=== PATIENT | male | born 1995 | race Caucasian/White ===

== ENCOUNTER → 2019-11-08 | Emergency (ER) | payer OTHER | END | disposition left against medical advice (07) | LOC: M ED | DX: Z11.59 Encounter for screening for other viral diseases (principal); Z53.9 Procedure and treatment not carried out, unspecified reason; Z20.828 Contact with and (suspected) exposure to other viral communicable diseases; Z53.21 Procedure and treatment not carried out due to patient leaving prior to being seen by health care provider ==

== ENCOUNTER 2020-06-03 19:17 | Emergency (ER) | payer OTHER ==
[~2020-06-03] VITALS: Ht 188 cm; Wt 107.2 kg
--- NOTE | 2020-06-03 20:19 | REPVR ---
PROCEDURE INFORMATION: Exam: XR Right Wrist Exam date and time: 06/03/2020 8:06 PM Age: 25 years old Clinical indication: Other: Trauma TECHNIQUE: Imaging protocol: XR Right wrist. Views: 3 or more views. COMPARISON: No relevant prior studies available. FINDINGS: Bones/joints: There is an acute comminuted fracture of the distal radius with extension into the distal radius articular surface. The dominant fracture fragment is dorso-radially displaced approximately 10 mm and the fracture is mildly impacted and dorsally angled. No other fracture is identified. Bone density is normal. Soft tissues: There is swelling of the wrist soft tissues. IMPRESSION: Acute comminuted fracture of the distal radius with intra-articular extension. The fracture is displaced, impacted and dorsally angled. Electronically signed by: Leonel Dupree On 06/03/2020 20:19:42 PM
--- NOTE | 2020-06-03 20:21 | REPVR ---
PROCEDURE INFORMATION: Exam: XR Right Forearm Exam date and time: 06/03/2020 8:06 PM Age: 25 years old Clinical indication: Other: Trauma TECHNIQUE: Imaging protocol: XR Right forearm. Views: 2 views. COMPARISON: No relevant prior studies available. FINDINGS: Bones/joints: There is an acute displaced and impacted fracture of the distal radius with dorsal angulation of the distal radius articular surface. The fracture extends into the distal radius articular surface and is better characterized on the dedicated wrist radiograph. The elbow joint is intact. Bone density is normal. Soft tissues: There is swelling of the wrist soft tissues. IMPRESSION: Acute fracture of the distal radius. Electronically signed by: Leonel Dupree On 06/03/2020 20:21:53 PM
[2020-06-03] MEDS ORDERED: PERCOCET 5MG/325MG TAB PO ONE (21:15)
[2020-06-03] MEDS ORDERED: OXYCODONE/APAP 5MG/325MG(BULK FOR ED) 1 TABLET PO ONE (21:45)
[2020-06-03] MEDS ORDERED: PERC5TAB12 PO (21:53)
[2020-06-03 22:08] VITALS: BP 119/84
== END 2020-06-03 22:09 | disposition home or self-care (01) ==
LOC: M ED 19:17
DX: S52.501A Unspecified fracture of the lower end of right radius, initial encounter for closed fracture (principal); V00.311A Fall from snowboard, initial encounter; Y92.830 Public park as the place of occurrence of the external cause; Y93.23 Activity, snow (alpine) (downhill) skiing, snowboarding, sledding, tobogganing and snow tubing; F17.210 Nicotine dependence, cigarettes, uncomplicated